=== PATIENT | female | born 1955 | race Caucasian/White ===

== ENCOUNTER 2025-02-16 09:47 | Inpatient (IN) | payer MEDICARE ==
[~2025-02-16] VITALS: Ht 167.6 cm; Wt 113.4 kg
[2025-02-16] VITALS (7 sets, daily range): BP systolic 110–159; BP diastolic 56–61; PULSE 76–86; RESP 18–22; TEMP 98.5–99.7; O2SAT 96–100
[~2025-02-16 09:47] MED LIST: CEFTIN250 MG PO; COMBIVENT14.7 GM INH; HYDROCODONE-IBU1 TAB PO; HYDROXYZINE PAM25 MG PO; LAMICTAL100 MG PO; SPIRIVA HANDIH18 MCG INH; TRICOR48 MG PO; VALIUM10 MG PO; Z CARDIZEM CD PO; Z.0.BENTYL20 MG PO; Z.0.ENALAPRIL MALEA2 PO; Z.0.GLUCOPHAGE1000 M PO; Z.0.LAMICTAL200 MG PO; Z.0.METOPROLOL SUCC5 PO; Z.0.NIASPAN1000 MG PO; Z.0.PHENERGAN25 M1 PO; Z.0.VALIUM10 MG PO; Z.0.VICODIN 5-5001 E PO; Z.0.ZOLOFT100 MG PO; ZOCOR40 MG PO; [UNRECOGNIZED DRUG - OTHER]; [UNRECOGNIZED DRUG - OTHER] PO; [UNRECOGNIZED DRUG - OTHER] SQ
[2025-02-16] MEDS ORDERED: NEXIUM40 MG PO (10:39)
[2025-02-16] MEDS ORDERED: ATORVASTATIN CA20 MG PO (10:39)
[2025-02-16] MEDS ORDERED: TRELEGY ELLIPT1 EAC1 INH (10:39)
[2025-02-16] MEDS ORDERED: BUPROPION HCL100 MG PO (10:39)
[2025-02-16] MEDS ORDERED: PRIMIDONE125 MG PO (10:39)
[2025-02-16] MEDS ORDERED: VRAYLAR1.5 MG PO (10:39)
[2025-02-16] MEDS ORDERED: NITROGLYCERIN0.4 MG SL (10:39)
[2025-02-16] MEDS ORDERED: HUMALOG SQ (10:39)
[2025-02-16] MEDS ORDERED: TRICOR145 MG PO (10:39)
[2025-02-16] MEDS ORDERED: HUMULIN 70100 UNIT/1 SC (10:39)
[2025-02-16] MEDS ORDERED: METOPROLOL TART50 MG PO (10:39)
[2025-02-16] MEDS ORDERED: LASIX40 MG PO (10:39)
[2025-02-16] MEDS ORDERED: IPRATROPIU0.2 MG/1 M INH (10:39)
[2025-02-16 10:50] LABS: BASOPHILS % 0.1 % (0.0-1.0); EOSINOPHILS % 0.5 % (0.0-6.0); HEMATOCRIT 35.3 % (34.2-44.1); HEMOGLOBIN 11.6 g/dL (12.0-16.0); LYMPHOCYTES # (AUTO) 1.3 (1.0-3.2); LYMPHOCYTES % 15.2 % (18.0-39.1); MEAN CORPUSCULAR HEMOGLOBIN 29.2 pg (28-32); MEAN CORPUSCULAR HGB CONC 32.9 g/dL (31-35); MEAN CORPUSCULAR VOLUME 88.9 fL (81-99); MONOCYTES # (AUTO) 0.7 (0.2-0.8); NEUTROPHILS # (AUTO) 6.6 (2.1-6.9); NEUTROPHILS % 75.9 % (38.7-80.0); PLATELET COUNT 199 x10e3/uL (140-360); RED BLOOD COUNT 3.97 x10e6/uL (3.6-5.1); RED CELL DISTRIBUTION WIDTH 14.2 % (11.7-14.4); WHITE BLOOD COUNT 8.73 x10e3/uL (4.8-10.8)
[2025-02-16 10:52] LABS: INR 0.92; PARTIAL THROMBOPLASTIN TIME 22.4 seconds (23.8-35.5); PROTHROMBIN TIME 13.2 seconds (11.9-14.5)
[2025-02-16 11:01] LABS: ALBUMIN 4.1 g/dL (3.5-5.0); ALBUMIN/GLOBULIN RATIO 1.6 (0.8-2.0); ANION GAP 16.4 mmol/L (8-16); BILIRUBIN,TOTAL 0.4 mg/dL (0.2-1.2); CALCIUM 8.8 mg/dL (8.4-10.2); CREATININE, SERUM 1.02 mg/dL (0.57-1.11); MAGNESIUM 1.7 MG/DL (1.3-2.1); POTASSIUM 4.4 mmol/L (3.5-5.1); TOTAL PROTEIN 6.6 g/dL (6.5-8.1)
[2025-02-16 11:05] LABS: CORONAVIRUS COVID-19 AG NEGATIVE (NEGATIVE); INFLUENZA A AG NEGATIVE (NEGATIVE); INFLUENZA B AG NEGATIVE (NEGATIVE); STREPTOCOCCUS GRP A ANTIGEN NEGATIVE (NEGATIVE)
[2025-02-16 11:07] LABS: TROPONIN I 0.018 ng/mL (0-0.300)
[2025-02-16] MEDS ORDERED: ONDANSETRON HCL INJ 2MG/ML 2ML 2 MG/ML VIAL IV PRN (11:45)
[2025-02-16 12:02] LABS: CLARITY,URINE CLEAR (CLEAR); COLOR,URINE YELLOW (YELLOW)
[2025-02-16 12:03] LABS: LEUKOCYTE ESTERASE ,URINE NEGATIVE (NEGATIVE); NITRITE,URINE NEGATIVE (NEGATIVE); PH,URINE 8.5 (5 - 7)
[2025-02-16 12:06] LABS: BACTERIA,URINE FEW /HPF; BILIRUBIN,URINE NEGATIVE (NEGATIVE); EPITHELIAL CELLS,URINE FEW /LPF; GLUCOSE, URINE NEGATIVE (NEGATIVE); KETONES,URINE NEGATIVE (NEGATIVE); PROTEIN,URINE DIPSTICK 1+ (NEGATIVE); RBC,URINE 0-5 /HPF (0-5); URINE UROBILINOGEN 0.2 mg/dL (0.2 - 1); WBC,URINE (MAN) 0-5 /HPF (0-5)
[2025-02-16] MEDS: SODIUM CHLORIDE 0.9% 1000ML 1,000 ML IV STA (12:06)
[2025-02-16] MEDS: ACETAMINOPHEN 325 MG TAB PO ONE (12:06)
[2025-02-16] MEDS: ONDANSETRON HCL INJ 2MG/ML 2ML 2 MG/ML VIAL IV STA (12:13)
[2025-02-16] MEDS: SODIUM CHLORIDE 0.9% 1000ML 1,000 ML IV SCH (13:45)
[2025-02-16] MEDS: ALBUTEROL/IPRATROPIUM 3 ML NEB NEB PRN (19:02)
[2025-02-16] MEDS: ACETAMINOPHEN 325 MG TAB PO PRN (21:51)
[2025-02-17] VITALS (14 sets, daily range): BP systolic 133–186; BP diastolic 55–102; PULSE 73–85; RESP 17–21; TEMP 97.7–100.6; O2SAT 91–100
[2025-02-17] MEDS: METOPROLOL TARTRATE INJ 1 MG/ML VIAL IV PRN (05:08)
[2025-02-17 06:15] LABS: BASOPHILS % 0.2 % (0.0-1.0); EOSINOPHILS % 0.1 % (0.0-6.0); HEMOGLOBIN 10.4 g/dL (12.0-16.0); LYMPHOCYTES # (AUTO) 1.3 (1.0-3.2); LYMPHOCYTES % 15.4 % (18.0-39.1); MEAN CORPUSCULAR HEMOGLOBIN 29.1 pg (28-32); MEAN CORPUSCULAR HGB CONC 32.5 g/dL (31-35); MEAN CORPUSCULAR VOLUME 89.6 fL (81-99); MONOCYTES # (AUTO) 0.8 (0.2-0.8); MONOCYTES % 8.9 % (4.4-11.3); NEUTROPHILS # (AUTO) 6.5 (2.1-6.9); NEUTROPHILS % 74.8 % (38.7-80.0); PLATELET COUNT 146 x10e3/uL (140-360); RED BLOOD COUNT 3.57 x10e6/uL (3.6-5.1); RED CELL DISTRIBUTION WIDTH 14.3 % (11.7-14.4); WHITE BLOOD COUNT 8.69 x10e3/uL (4.8-10.8)
[2025-02-17 06:40] LABS: ALBUMIN 3.6 g/dL (3.5-5.0); ALBUMIN/GLOBULIN RATIO 1.3 (0.8-2.0); BILIRUBIN,TOTAL 0.6 mg/dL (0.2-1.2); CALCIUM 8.6 mg/dL (8.4-10.2); CREATININE, SERUM 0.83 mg/dL (0.57-1.11); TOTAL PROTEIN 6.4 g/dL (6.5-8.1)
[2025-02-17] MEDS ORDERED: DEXTROSE 50% SYRINGE 50 ML IV PRN (07:15)
[2025-02-17] MEDS ORDERED: GUAIFENESIN/DEXTROMETHORPHAN LIQD 5 ML UDC NG PRN (07:15)
[2025-02-17 07:19] LABS: TROPONIN I 0.035 ng/mL (0-0.300)
[2025-02-17 07:33] LABS: CHOL/HDL RATIO 3.5 (3.0-3.6)
[2025-02-17] MEDS: CHLORASEPTIC SPRAY 177 ML BTL MM PRN (08:31)
[2025-02-17] MEDS: LORATADINE 10 MG TAB PO SCH (08:32)
[2025-02-17] MEDS: FAMOTIDINE 20 MG TAB PO SCH (08:32)
[2025-02-17] MEDS: BENZONATATE 100 MG CAP PO SCH (08:32)
[2025-02-17] MEDS: SODIUM CHLORIDE 0.45% 1,000 ML IV SCH (08:38)
[2025-02-17] MEDS: INSULIN REGULAR, HUMAN 100 UNIT/1 ML SQ SCH (08:52)
[2025-02-17] MEDS: METOPROLOL TARTRATE 25 MG TAB PO SCH (12:16)
[2025-02-17] MEDS ORDERED: METOPROLOL TARTRATE 25 MG TAB PO SCH (14:00)
[2025-02-17 15:38] LABS: TROPONIN I 0.038 ng/mL (0-0.300)
[2025-02-17] MEDS: ENOXAPARIN SOD INJ 40 MG/0.4 ML SYR SC SCH (16:58)
[2025-02-18] VITALS (11 sets, daily range): BP systolic 157–188; BP diastolic 49–75; PULSE 71–88; RESP 18–23; TEMP 98.8–100.8; O2SAT 96–100
[2025-02-18 05:48] LABS: BASOPHILS % 0.3 % (0.0-1.0); EOSINOPHILS % 0.1 % (0.0-6.0); HEMATOCRIT 32.3 % (34.2-44.1); HEMOGLOBIN 10.3 g/dL (12.0-16.0); LYMPHOCYTES # (AUTO) 1.7 (1.0-3.2); LYMPHOCYTES % 22.6 % (18.0-39.1); MEAN CORPUSCULAR HEMOGLOBIN 29.3 pg (28-32); MEAN CORPUSCULAR HGB CONC 31.9 g/dL (31-35); MEAN CORPUSCULAR VOLUME 91.8 fL (81-99); MONOCYTES # (AUTO) 0.7 (0.2-0.8); MONOCYTES % 9.4 % (4.4-11.3); NEUTROPHILS # (AUTO) 5.1 (2.1-6.9); NEUTROPHILS % 67.1 % (38.7-80.0); PLATELET COUNT 131 x10e3/uL (140-360); RED BLOOD COUNT 3.52 x10e6/uL (3.6-5.1); RED CELL DISTRIBUTION WIDTH 14.3 % (11.7-14.4); WHITE BLOOD COUNT 7.58 x10e3/uL (4.8-10.8)
[2025-02-18 06:11] LABS: ANION GAP 15.2 mmol/L (8-16); CALCIUM 8.8 mg/dL (8.4-10.2); CREATININE, SERUM 0.84 mg/dL (0.57-1.11); POTASSIUM 4.2 mmol/L (3.5-5.1)
[2025-02-18] MEDS: FUROSEMIDE INJ 10 MG/ML 4 ML VIAL IV STA (06:26)
[2025-02-18] MEDS ORDERED: BUPROPION HCL 100 MG TAB PO SCH (09:00)
[2025-02-18] MEDS ORDERED: METOPROLOL TARTRATE 50 MG TAB PO SCH (09:00)
[2025-02-18] MEDS: PANTOPRAZOLE SOD 40 MG TABEC PO SCH (09:33)
[2025-02-18] MEDS: BUPROPION HCL 100 MG TAB PO SCH (09:34)
[2025-02-18] MEDS: FENOFIBRATE 145 MG TAB PO SCH (09:34)
[2025-02-18] MEDS: SERTRALINE HCL 100 MG TAB PO SCH (09:34)
[2025-02-18] MEDS: PRIMIDONE 250 MG TABLET PO SCH (21:00)
[2025-02-18] MEDS: ATORVASTATIN 20 MG TAB PO SCH (21:33)
[2025-02-19] VITALS (10 sets, daily range): BP systolic 133–181; BP diastolic 41–65; PULSE 66–83; RESP 18–21; TEMP 97.6–99.5; O2SAT 97–100
[2025-02-19 06:24] LABS: BASOPHILS % 0.2 % (0.0-1.0); EOSINOPHILS # (AUTO) 0.1 (0.0-0.4); EOSINOPHILS % 2.2 % (0.0-6.0); HEMATOCRIT 29.7 % (34.2-44.1); HEMOGLOBIN 9.8 g/dL (12.0-16.0); LYMPHOCYTES # (AUTO) 1.5 (1.0-3.2); LYMPHOCYTES % 29.3 % (18.0-39.1); MEAN CORPUSCULAR HEMOGLOBIN 29.2 pg (28-32); MEAN CORPUSCULAR VOLUME 88.4 fL (81-99); MONOCYTES # (AUTO) 0.4 (0.2-0.8); MONOCYTES % 8.9 % (4.4-11.3); NEUTROPHILS # (AUTO) 2.9 (2.1-6.9); PLATELET COUNT 134 x10e3/uL (140-360); RED BLOOD COUNT 3.36 x10e6/uL (3.6-5.1); RED CELL DISTRIBUTION WIDTH 13.8 % (11.7-14.4); WHITE BLOOD COUNT 4.95 x10e3/uL (4.8-10.8)
[2025-02-19] MEDS ORDERED: FAMOTIDINE20 MG PO (06:48)
[2025-02-19] MEDS ORDERED: BENZONATATE100 MG PO (06:48)
[2025-02-19] MEDS ORDERED: LORATADINE10 MG PO (06:48)
[2025-02-19 06:55] LABS: ANION GAP 15.5 mmol/L (8-16); CALCIUM 8.7 mg/dL (8.4-10.2); CREATININE, SERUM 0.84 mg/dL (0.57-1.11); POTASSIUM 3.5 mmol/L (3.5-5.1)
[2025-02-19] MEDS ORDERED: CEPHALEXIN500 MG PO (06:58)
[2025-02-19] MEDS: FUROSEMIDE 40 MG TAB PO SCH (08:38)
[2025-02-19] MEDS ORDERED: PRIMIDONE 250 MG TABLET PO SCH (09:00)
[2025-02-19] MEDS: HYDRALAZINE HCL 20 MG/ML VIAL IV PRN (12:08)
[2025-02-19] MEDS: MUPIROCIN 2% OINT 22 GM TUBE TOP SCH (20:55)
[2025-02-20] VITALS (7 sets, daily range): BP systolic 146–173; BP diastolic 55–61; PULSE 66–70; RESP 16–22; TEMP 98.2–98.8; O2SAT 95–100
[2025-02-20] MEDS: METOPROLOL TARTRATE 25 MG TAB PO ONE (08:57)
[2025-02-20] MEDS ORDERED: METOPROLOL TART50 MG PO (12:23)
[2025-02-20] MEDS ORDERED: METOPROLOL TARTRATE 50 MG TAB PO SCH (21:00)
[2025-02-20] MEDS ORDERED: PRIMIDONE 50 MG TAB PO SCH (21:00)
== END 2025-02-20 13:45 | disposition home or self-care (01) | DRG 153 ==
LOC: ER 10:05 → ERHOLD 11:35 → MED/SURG2 16:27 → MED/SURG 02-17 19:40
PROVIDERS: ADMIT Internal Medicine; ATTEND Internal Medicine
DX: J02.9 Acute pharyngitis, unspecified (principal); M62.82 Rhabdomyolysis; S32.039A Unspecified fracture of third lumbar vertebra, initial encounter for closed fracture; K50.90 Crohn's disease, unspecified, without complications; E66.01 Morbid (severe) obesity due to excess calories; Z68.41 Body mass index [BMI] 40.0-44.9, adult; F25.9 Schizoaffective disorder, unspecified; I10 Essential (primary) hypertension; E11.9 Type 2 diabetes mellitus without complications; J44.9 Chronic obstructive pulmonary disease, unspecified; I25.10 Atherosclerotic heart disease of native coronary artery without angina pectoris; E78.5 Hyperlipidemia, unspecified; K21.9 Gastro-esophageal reflux disease without esophagitis; M79.7 Fibromyalgia; R16.2 Hepatomegaly with splenomegaly, not elsewhere classified; F43.10 Post-traumatic stress disorder, unspecified; F42.9 Obsessive-compulsive disorder, unspecified; D16.31 Benign neoplasm of short bones of right lower limb; M81.0 Age-related osteoporosis without current pathological fracture; R53.81 Other malaise; G47.00 Insomnia, unspecified; E87.70 Fluid overload, unspecified; Z11.52 Encounter for screening for COVID-19; M19.90 Unspecified osteoarthritis, unspecified site; Z79.4 Long term (current) use of insulin; Z79.84 Long term (current) use of oral hypoglycemic drugs; Z98.1 Arthrodesis status; Z90.49 Acquired absence of other specified parts of digestive tract; Z90.710 Acquired absence of both cervix and uterus; Z90.721 Acquired absence of ovaries, unilateral; Z91.040 Latex allergy status; Z88.2 Allergy status to sulfonamides; Z88.5 Allergy status to narcotic agent; Z87.891 Personal history of nicotine dependence
CPT/HCPCS: 36415; 70450; 71045; 71250; 72125; 74176; 80048; 80053; 80061; 81001; 82550; 82948; 83036; 83518; 83735; 83880; 84484; 85025; 85610; 85730; 87040; 87070; 87086; 93005; 94640; 94799; 99285; J0360; J0696; J1650; J1938; J2470; J7030